=== PATIENT | male | born 1990 | race Two or more races ===

== ENCOUNTER 2022-06-24 19:29 | Emergency (ER) | payer SELFPAY ==
[~2022-06-24] VITALS: Ht 180.3 cm; Wt 102.2 kg
[2022-06-24] MEDS ORDERED: ALPRAZolam 0.5 MG TAB PO ONE (21:30)
[2022-06-24 21:53] VITALS: BP 136/104
== END 2022-06-24 22:34 | disposition home or self-care (01) ==
LOC: ER 19:29
DX: F41.9 Anxiety disorder, unspecified (principal)